=== PATIENT | female | born 1935 | race Caucasian/White ===

== ENCOUNTER 2017-11-06 10:04 | Emergency (ER) | payer OTHER ==
[~2017-11-06] VITALS: Ht 154.9 cm; Wt 59.0 kg
[2017-11-06] MEDS ORDERED: RESTORIL30 M1 PO (10:38)
[2017-11-06] MEDS ORDERED: ATORVASTATIN CA40 MG PO (10:39)
[2017-11-06] MEDS ORDERED: VASOTEC10 MG NGT (10:39)
[2017-11-06] MEDS ORDERED: NORVASC2.5 M1 PO (10:40)
[2017-11-06] MEDS ORDERED: OMEPRAZOLE20 MG PO (10:40)
[2017-11-06] MEDS ORDERED: PLAVIX75 MG PO (10:40)
[2017-11-06] MEDS ORDERED: CENTRUM COMPLE1 EACH PO (10:41)
[2017-11-06] MEDS ORDERED: B-100 COMPLEX100 MG PO (10:41)
[2017-11-06] MEDS ORDERED: REMINYL8 MG PO (10:41)
[2017-11-06] MEDS ORDERED: ATENOLOL25 MG PO (10:41)
[2017-11-06] MEDS ORDERED: TEMAZEPAM30 MG PO (15:12)
== END 2017-11-06 16:06 | disposition home or self-care (01) ==
LOC: ER 10:04
DX: R25.8 Other abnormal involuntary movements (principal); G30.8 Other Alzheimer's disease; F02.80 Dementia in other diseases classified elsewhere, unspecified severity, without behavioral disturbance, psychotic disturbance, mood disturbance, and anxiety; I10 Essential (primary) hypertension

== ENCOUNTER 2017-12-06 17:00 | Inpatient (IN) | payer OTHER ==
[~2017-12-06] VITALS: Ht 154.9 cm; Wt 61.2 kg
[~2017-12-06 17:00] MED LIST: ATENOLOL25 MG PO; ATORVASTATIN CA40 MG PO; B-100 COMPLEX100 MG PO; CENTRUM COMPLE1 EACH PO; NORVASC2.5 M1 PO; OMEPRAZOLE20 MG PO; PLAVIX75 MG PO; REMINYL8 MG PO; RESTORIL30 M1 PO; TEMAZEPAM30 MG PO; VASOTEC10 MG NGT
[2017-12-06] MEDS ORDERED: SYNTHROID50 MCG (17:36)
[2017-12-06] MEDS ORDERED: NAMENDA5 MG (17:38)
== END 2017-12-08 10:00 | disposition designated cancer center or children's hospital (05) | DRG 281 ==
LOC: ER 17:00 → ICU-2 21:33 → SEC-K 21:33 → ICU-2 12-07 07:38
PROC: BW28ZZZ Computerized Tomography (CT Scan) of Head (ICD-10-PCS; principal; 2017-12-06)
PROC: B246ZZZ Ultrasonography of Right and Left Heart (ICD-10-PCS; 2017-12-07)
DX: I21.4 Non-ST elevation (NSTEMI) myocardial infarction (principal); N39.0 Urinary tract infection, site not specified; I24.9 Acute ischemic heart disease, unspecified; I25.10 Atherosclerotic heart disease of native coronary artery without angina pectoris; I10 Essential (primary) hypertension; E78.00 Pure hypercholesterolemia, unspecified; E03.8 Other specified hypothyroidism; F03.90 Unspecified dementia, unspecified severity, without behavioral disturbance, psychotic disturbance, mood disturbance, and anxiety; Z98.61 Coronary angioplasty status; R55 Syncope and collapse; G47.09 Other insomnia; K29.60 Other gastritis without bleeding; B96.29 Other Escherichia coli [E. coli] as the cause of diseases classified elsewhere; I35.1 Nonrheumatic aortic (valve) insufficiency